=== PATIENT | male | born 1960 | race Caucasian/White ===

== ENCOUNTER 2018-04-01 08:06 | Day surgery (SDC) | payer BC ==
[2018-04-01] MEDS ORDERED: Sodium Chloride 0.9% 10 ML Syringe FLUSH PRN (08:30)
[2018-04-01] MEDS ORDERED: Lactated Ringers 1,000 ML IV SCH (08:30)
[2018-04-01] MEDS ORDERED: Propofol 200 MG/20 ML SDV IV ONE (10:00)
[2018-04-01] MEDS ORDERED: Glycopyrrolate 0.2 MG/ML 5 ML MDV IV ONE (10:00)
--- NOTE | 2018-04-01 10:40 | PCM.OPNOTE ---
- General Post-Op/Procedure Note Date of Surgery/Procedure: 04/01/18 Operative Procedure(s): Colonoscopy Findings: Normal Colon Pre Op Diagnosis: Colon Cancer Screening. Upper Abdominal Pain Post-Op Diagnosis: Normal colon Anesthesia Technique: MAC Primary Surgeon: Paul Tucker Pathology: none Output, Urine Amount: 0 EBL in mLs: 0 Complications: None Condition: Good
--- NOTE | 2018-04-01 16:16 | OR ---
DATE OF OPERATION: 04/01/2018 SURGEON: Paul Tucker MD REFERRING PROVIDER: Marlen Finnegan MD. PREOPERATIVE DIAGNOSIS: Upper abdominal pain and colon cancer screening. POSTOPERATIVE DIAGNOSIS: Normal colon. OPERATION PERFORMED: Colonoscopy. INDICATIONS FOR SURGERY: This is a 57-year-old male has been having unexplained epigastric burning pain. He has also never had a colon evaluation and is referred for colonoscopy. FINDINGS: The patient's colon appeared normal. No polyps or other abnormalities were seen. There was no inflammation or visible abnormalities to explain the patient's symptoms. PROCEDURE IN DETAIL: The patient was taken to the procedure room. He was given intravenous sedation, and with him in the left lateral decubitus position, digital rectal exam was performed showing no rectal masses. The Olympus colonoscope was inserted into the rectum. Retroflexed examination of the rectal canal was performed. The scope was then carefully advanced under direct visualization through the entire length of the colon until the cecum was reached. Cecal acquisition was confirmed by noting the normal internal cecal anatomy including the appendiceal orifice and the ileocecal valve. The light was also noted to transilluminate the abdominal wall in the right lower quadrant. The ileocecal valve was cannulated and the terminal ileum examined and it also appeared normal. The scope was then slowly withdrawn, sequentially re-examining the colonic segments until the entire colon and rectum had been fully examined. The scope was removed and the patient was taken from the procedure room in satisfactory condition. ESTIMATED BLOOD LOSS: Zero. COMPLICATIONS: None. PROGNOSIS: Good. /[id number] MOY/KWASI
--- NOTE | 2018-04-01 16:18 | PREOP ---
ADMISSION DATE: 04/01/2018 HISTORY: This 57-year-old male was referred for a colonoscopy. He has been having symptoms of intermittent burning upper abdominal pain. Etiology of which has been unclear. He recently underwent upper endoscopy which was normal. He has never had a previous colonoscopy. 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 ALLERGIES: He has no known drug allergies. FAMILY HISTORY: Noncontributory. SYSTEM REVIEW: Reveals that he has not been able to work since his shoulder surgery and even though this is progressing satisfactorily. He notes his stomach pain has been bad enough to keep him from being able to work. He has not been experiencing any shortness of breath, chest pain, or palpitations. PHYSICAL EXAMINATION: VITAL SIGNS: Temperature is 98.1, pulse 42, blood pressure is 120/75. GENERAL: The patient is an adult male. He is currently in no acute distress. HEENT: Head is normocephalic. No scleral icterus. No cervical masses. HEART: Regular without murmur. LUNGS: Clear. Breath sounds are equal. There is no wheezing noted this morning. ABDOMEN: Soft, currently nontender. No palpable mass. No hepatic or splenic enlargement. There is no tenderness noted in the epigastrium or right upper quadrant. IMPRESSION: Abdominal pain, colon cancer screening. PLAN: Colonoscopy. INFORMED CONSENT: I have discussed the proposed colonoscopy with the patient. Indications and risks were reviewed. He appears to understand, accepting risks. /[id number] MOY/KWASI ISABEL
== END 2018-04-01 11:48 | disposition home or self-care (01) ==
LOC: FB.SDS 08:06
PROVIDERS: ATTEND Surgery
DX: R10.13 Epigastric pain (principal); Z86.711 Personal history of pulmonary embolism; Z86.718 Personal history of other venous thrombosis and embolism; Z79.01 Long term (current) use of anticoagulants
CPT/HCPCS: 45378; J7120; J2704